=== PATIENT | male | born 2005 | race Two or more races ===

== ENCOUNTER 2023-07-12 15:20 | Emergency (ER) | payer OTHER ==
--- NOTE | 2023-07-12 15:48 | ED Physician Documentation ---
PD HPI ABD PAIN - Stated complaint Stated Complaint: VOMIT,NAUSEA - Chief complaint Chief Complaint: Abd Pain - History obtained from History obtained from: Patient - Additional information Additional information: Otherwise healthy 18-year-old gentleman who is active duty in the [employer] developed vomiting and diarrhea 2 days ago which is persistent. He has some occasional abdominal pain but not constant or severe. No fevers. No known sick contacts. PD PAST MEDICAL HISTORY - Past Medical History Past Medical History: No - Past Surgical History Past Surgical History: No - Present Medications Home Medications: Ambulatory Orders Medication Instructions Recorded Confirmed Loperamide [Imodium] 2 mg PO QID PRN #10 cap 07/12/23 Ondansetron Odt [Zofran] 4 mg TL Q6H PRN #10 tablet 07/12/23 - Allergies Allergies/Adverse Reactions: Allergies Allergy/AdvReac Type Severity Reaction Status Date / Time No Known Drug Allergies Allergy Verified 07/12/23 15:38 - Social History Does the pt smoke?: No Smoking Status: Never smoker - Immunizations Immunizations are current?: Yes PD ED PE NORMAL - Vitals Vital signs reviewed: Yes - General General: Alert and oriented X 3, No acute distress - HEENT HEENT: Pharynx benign - Cardiac Cardiac: No murmur, Other (Mild resting tachycardia) - Respiratory Respiratory: No respiratory distress, Clear bilaterally - Abdomen Abdomen: Soft, Non tender - Neuro Neuro: Alert and oriented X 3 Results - Vitals Vitals: Vital Signs - 24 hr 07/12/23 15:36 Temperature 36.5 C Heart Rate 102 H Respiratory 18 Rate Blood Pressure 124/79 O2 Saturation 96 - Labs Labs: Laboratory Tests 07/12/23 15:50 Sodium 139 Potassium 4.1 Chloride 102 Carbon Dioxide 25 Anion Gap 12.0 BUN 21 H Creatinine 0.9 Estimated GFR (MDRD) 108 Glucose 98 Calcium 10.1 Total Bilirubin 1.2 H AST 17 ALT 24 Alkaline Phosphatase 69 Total Protein 7.9 Albumin 4.9 Globulin 3.0 Albumin/Globulin Ratio 1.6 Lipase 12 PD Medical Decision Making - ED course ED course: 18-year-old with gastroenteritis, benign abdominal exam. ER abdominal panel notable for mild prerenal azotemia due to dehydration, otherwise unremarkable. After the administration of IV Reglan, IV fluids, n.p.o. Imodium he was feeling much better and passed a p.o. challenge. Departure - Departure Disposition: Home, Self Care Clinical Impression: Gastroenteritis Condition: Good Record reviewed to determine appropriate education?: Yes Instructions: ED Gastroenteritis Viral Prescriptions: Loperamide [Imodium] 2 mg PO QID PRN #10 cap PRN Reason: Diarrhea Ondansetron Odt [Zofran] 4 mg TL Q6H PRN #10 tablet PRN Reason: Nausea / Vomiting Comments: You are seen today for gastroenteritis, common viral illness with vomiting and diarrhea. Does not seem like anything worse, we would like to see you in 24 hours if not improved. Return for new or worsening symptoms sooner. Forms: PCP List
[2023-07-12] MEDS: SODIUM CHLORIDE 0.9% 1,000 ML IV STA (15:53)
[2023-07-12] MEDS: LOPERAMIDE 2 MG CAPSULE PO STA (15:53)
[2023-07-12] MEDS: METOCLOPRAMIDE 10 MG/2 ML VIAL IVP STA (15:54)
[2023-07-12 16:13] LABS: ALBUMIN 4.9 g/dL (3.2-5.5); ALBUMIN/GLOBULIN RATIO 1.6 (1.0-2.2); BILIRUBIN,TOTAL 1.2 mg/dL (0.2-1.0); CALCIUM 10.1 mg/dL (8.5-10.3); CREATININE 0.9 mg/dL (0.6-1.3); POTASSIUM 4.1 mmol/L (3.5-4.5); TOTAL PROTEIN 7.9 g/dL (6.4-8.9)
[2023-07-12 16:58] VITALS: BP 104/61; O2SAT 100
== END 2023-07-12 16:54 | disposition home or self-care (01) ==
LOC: ED 15:20
DX: K52.9 Noninfective gastroenteritis and colitis, unspecified (principal); E86.0 Dehydration
CPT/HCPCS: 36415; 80053; 83690; 96374; 99283; A9270; J2765